=== PATIENT | female | born 1990 | race African-American/Black ===

== ENCOUNTER 2023-05-25 10:14 | Emergency (ER) | payer BC, OTHER ==
[2023-05-25 10:21] VITALS: BP 158/99; PULSE 104; RESP 19; TEMP 98.6; BMI 24.3
== END 2023-05-25 12:11 | disposition home or self-care (01) ==
LOC: JERFT 10:14
DX: R21 Rash and other nonspecific skin eruption (principal); L30.1 Dyshidrosis [pompholyx]
CPT/HCPCS: 99283-25